=== PATIENT | male | born 1955 | race Caucasian/White ===

== ENCOUNTER 2022-10-13 18:29 | Inpatient (IN) | payer OTHER ==
[2022-10-13] MEDS ORDERED: Acetaminophen 325 MG TAB PO PRN (22:56)
[2022-10-13 23:09] VITALS: BMI 43.6
[2022-10-13] MEDS ORDERED: Glucagon 1 MG/ML KIT IM PRN (23:26)
[2022-10-13] MEDS ORDERED: Dextrose 5% in Water 1,000 ML IV PRN (23:26)
[2022-10-13] MEDS ORDERED: Dextrose 50% Abboject 50 ML SYRINGE SLOW IVP PRN (23:26)
[2022-10-13 23:45] LABS: Troponin I Less than 0.010 ng/mL (< 0.028)
[2022-10-14] MEDS: Levothyroxine Sodium 50 MCG TAB PO SCH (05:21)
[2022-10-14 06:20] LABS: #Eosinphils 0.2 thou/uL (0.0-0.7); #Monocytes 0.5 thou/uL (0.11-0.59); #Neutrophils 5.1 thou/uL (1.40-6.50); %Basophils 0.3 % (0.0-1.0); %Eosinophils 2.2 % (0.0-10.0); %Lymphocytes 34.3 % (21.0-51.0); %Neutrophils 57.1 % (42.0-75.0); Hematocrit 48.3 % (42.0-52.0); Hemoglobin 15.5 g/dL (14.0-18.0); Mean Corpuscular HGB CONC 32.1 g/dL (32.0-36.0); Mean Corpuscular Hemoglobin 27.3 pg (27.0-31.0); Mean Platelet Volume 10.2 fL (7.4-10.4); Platelet Count 208 10x3/uL (130-400); RBC Distribution Width 15.7 % (11.5-14.5); Red Blood Cell (RBC) Count 5.68 mill/uL (4.70-6.10)
[2022-10-14 06:45] LABS: Anion Gap 11 mmol/L (10-20); BUN (Urea Nitrogen) 27 mg/dL (8.4-25.7); Calc. Creatinine Clearance 94 mL/min (70-130); Calcium 9.5 mg/dL (7.8-10.44); Carbon Dioxide 31 mmol/L (23-31); Chloride 99 mmol/L (98-107); Estimated GFR 55; Glucose 160 mg/dL (80-115); Potassium 4.1 mmol/L (3.5-5.1); Sodium 137 mmol/L (136-145)
[2022-10-14 06:55] LABS: Troponin I Less than 0.010 ng/mL (< 0.028)
[2022-10-14] MEDS: Budesonide 0.25 MG/2 ML NEB INH SCH ×2 (07:40→19:24)
[2022-10-14] MEDS ORDERED: Tamsulosin HCl 0.4 MG CAP PO SCH ×2 (07:45→09:00)
[2022-10-14] MEDS: Furosemide 40 MG TAB PO SCH (08:25)
[2022-10-14] MEDS: DULoxetine 30 MG CAP PO SCH (08:25)
[2022-10-14] MEDS: Fenofibrate 48 MG TAB PO SCH (08:26)
[2022-10-14] MEDS: Lisinopril 20 MG TAB PO SCH (11:28)
[2022-10-14] MEDS: HumaLOG 300 UNITS/3 ML VIAL SC PRN ×2 (11:28→18:02)
[2022-10-14] MEDS ORDERED: Regadenoson 0.4 MG/5 ML SYRINGE ONE (12:52)
[2022-10-14] MEDS: metFORMIN 500 MG TAB PO SCH (20:28)
[2022-10-14] MEDS: Pramipexole Di-HCl 0.25 MG TAB PO SCH (20:29)
[2022-10-14] MEDS ORDERED: Rosuvastatin 20 MG TAB PO SCH (21:00)
[2022-10-14] MEDS: HYDROcodone/Acetaminophen 10/325 mg Tablet PO PRN (21:20)
[2022-10-15] MEDS: Levothyroxine Sodium 50 MCG TAB PO SCH ×3 (03:35→11:22)
[2022-10-15] MEDS: HYDROcodone/Acetaminophen 10/325 mg Tablet PO PRN ×2 (03:35→14:46)
[2022-10-15] MEDS: Budesonide 0.25 MG/2 ML NEB INH SCH ×2 (07:16→19:16)
[2022-10-15] MEDS: Lisinopril 20 MG TAB PO SCH ×2 (11:10→11:22)
[2022-10-15] MEDS: Rosuvastatin 20 MG TAB PO SCH (11:11)
[2022-10-15] MEDS: metFORMIN 500 MG TAB PO SCH ×2 (11:12→20:20)
[2022-10-15] MEDS: Allopurinol 300 MG TAB PO SCH (11:13)
[2022-10-15] MEDS: Tamsulosin HCl 0.4 MG CAP PO SCH (11:13)
[2022-10-15] MEDS: Fenofibrate Nanocrystallized 145 MG TAB PO SCH (11:13)
[2022-10-15] MEDS: Furosemide 40 MG TAB PO SCH (11:13)
[2022-10-15] MEDS: DULoxetine 30 MG CAP PO SCH ×2 (11:13→11:22)
[2022-10-15] MEDS: Fenofibrate 48 MG TAB PO SCH (11:22)
[2022-10-15] MEDS: Ipratropium/Albuterol 3 ML NEB NEB SCH (19:14)
[2022-10-15] MEDS: Pramipexole Di-HCl 0.25 MG TAB PO SCH (20:20)
[2022-10-15] MEDS: Sodium Chloride 0.9% 1,000 ML IV SCH (20:20)
[2022-10-15] MEDS: HumaLOG 300 UNITS/3 ML VIAL SC PRN (20:34)
[2022-10-16] MEDS: HumaLOG 300 UNITS/3 ML VIAL SC PRN ×3 (05:45→20:53)
[2022-10-16 06:16] LABS: Anion Gap 17 mmol/L (10-20); BUN (Urea Nitrogen) 47 mg/dL (8.4-25.7); Calc. Creatinine Clearance 61 mL/min (70-130); Calcium 9.9 mg/dL (7.8-10.44); Carbon Dioxide 22 mmol/L (23-31); Chloride 98 mmol/L (98-107); Estimated GFR 32; Glucose 273 mg/dL (80-115); Potassium 5.2 mmol/L (3.5-5.1); Sodium 132 mmol/L (136-145)
[2022-10-16] MEDS: Budesonide 0.25 MG/2 ML NEB INH SCH ×2 (07:14→18:38)
[2022-10-16] MEDS: Ipratropium/Albuterol 3 ML NEB NEB SCH ×4 (07:18→18:37)
[2022-10-16] MEDS: Levothyroxine Sodium 50 MCG TAB PO SCH (09:15)
[2022-10-16] MEDS: metFORMIN 500 MG TAB PO SCH (09:16)
[2022-10-16] MEDS: Rosuvastatin 20 MG TAB PO SCH (09:16)
[2022-10-16] MEDS: Furosemide 40 MG TAB PO SCH (09:22)
[2022-10-16] MEDS: Allopurinol 300 MG TAB PO SCH (09:22)
[2022-10-16] MEDS: Fenofibrate Nanocrystallized 145 MG TAB PO SCH (09:22)
[2022-10-16] MEDS: DULoxetine 30 MG CAP PO SCH (09:22)
[2022-10-16] MEDS: Lisinopril 20 MG TAB PO SCH (09:23)
[2022-10-16] MEDS: Tamsulosin HCl 0.4 MG CAP PO SCH (09:24)
[2022-10-16 11:26] LABS: Cardiac Risk 5.7 (Less than 4.5)
[2022-10-16] MEDS ORDERED: Aspirin 81 mg Enteric Coated Tablet PO SCH (11:30)
[2022-10-16] MEDS ORDERED: Clopidogrel Bisulfate 300 MG TAB PO SCH (11:30)
[2022-10-16 11:40] LABS: Hemoglobin A1c 9.8 % (4.0-6.0)
[2022-10-16] MEDS: Sodium Chloride 0.9% 1,000 ML IV SCH (15:37)
[2022-10-16] MEDS: HYDROcodone/Acetaminophen 10/325 mg Tablet PO PRN (18:15)
[2022-10-16] MEDS: Pramipexole Di-HCl 0.25 MG TAB PO SCH (20:54)
[2022-10-16] MEDS ORDERED: Rosuvastatin 20 MG TAB PO SCH (21:00)
[2022-10-17] MEDS: HumaLOG 300 UNITS/3 ML VIAL SC PRN ×3 (05:40→18:41)
[2022-10-17] MEDS ORDERED: Levothyroxine Sodium 50 MCG TAB PO SCH (06:00)
[2022-10-17 06:08] LABS: Anion Gap 12 mmol/L (10-20); BUN (Urea Nitrogen) 47 mg/dL (8.4-25.7); Calc. Creatinine Clearance 67 mL/min (70-130); Calcium 9.8 mg/dL (7.8-10.44); Carbon Dioxide 24 mmol/L (23-31); Chloride 102 mmol/L (98-107); Estimated GFR 36; Glucose 239 mg/dL (80-115); Sodium 133 mmol/L (136-145)
[2022-10-17] MEDS: Budesonide 0.25 MG/2 ML NEB INH SCH ×2 (06:50→18:55)
[2022-10-17] MEDS: Ipratropium/Albuterol 3 ML NEB NEB SCH ×4 (06:54→18:55)
[2022-10-17] MEDS ORDERED: Sodium Chloride 0.9% 1,000 ML IV SCH (07:56)
[2022-10-17] MEDS ORDERED: Aspirin 81 mg Enteric Coated Tablet PO SCH (09:00)
[2022-10-17] MEDS ORDERED: Clopidogrel Bisulfate 75 MG TAB PO SCH (09:00)
[2022-10-17] MEDS: Allopurinol 300 MG TAB PO SCH (09:10)
[2022-10-17] MEDS: DULoxetine 30 MG CAP PO SCH (09:10)
[2022-10-17] MEDS: Tamsulosin HCl 0.4 MG CAP PO SCH (09:10)
[2022-10-17] MEDS: Icosapent Ethyl 1 GM CAPSULE PO SCH ×2 (09:18→18:41)
[2022-10-17 16:22] VITALS: BP 110/55; TEMP 97.7
== END 2022-10-17 19:05 | disposition home or self-care (01) | DRG 303 ==
LOC: 2SW 18:29 → OBSVTOIN 10-14 17:49
PROVIDERS: ADMIT Family Medicine; ATTEND Family Medicine
DX: I25.119 Atherosclerotic heart disease of native coronary artery with unspecified angina pectoris (principal); J96.11 Chronic respiratory failure with hypoxia; I13.0 Hypertensive heart and chronic kidney disease with heart failure and stage 1 through stage 4 chronic kidney disease, or unspecified chronic kidney disease; N17.9 Acute kidney failure, unspecified; Z68.41 Body mass index [BMI] 40.0-44.9, adult; N18.4 Chronic kidney disease, stage 4 (severe); E03.9 Hypothyroidism, unspecified; E78.5 Hyperlipidemia, unspecified; E66.9 Obesity, unspecified; L40.9 Psoriasis, unspecified; J44.9 Chronic obstructive pulmonary disease, unspecified; Z88.0 Allergy status to penicillin; I25.2 Old myocardial infarction; N40.1 Benign prostatic hyperplasia with lower urinary tract symptoms; E11.22 Type 2 diabetes mellitus with diabetic chronic kidney disease; I50.9 Heart failure, unspecified; I89.0 Lymphedema, not elsewhere classified; N28.9 Disorder of kidney and ureter, unspecified; Z82.49 Family history of ischemic heart disease and other diseases of the circulatory system; Z95.5 Presence of coronary angioplasty implant and graft; E11.51 Type 2 diabetes mellitus with diabetic peripheral angiopathy without gangrene; F17.220 Nicotine dependence, chewing tobacco, uncomplicated; R33.8 Other retention of urine; I42.9 Cardiomyopathy, unspecified; E78.1 Pure hyperglyceridemia
CPT/HCPCS: 36415; 36416; 51702; 78452; 80048; 80061; 83036; 84484; 85025; 93017; 94640; 96372; A9500; G0378; G0379; J1650; J1815; J2785; J7050; J7620; J7626

== ENCOUNTER 2023-05-02 02:00 | Inpatient (IN) | payer OTHER ==
[2023-05-02] MEDS ORDERED: Ipratropium Bromide 2.5 ml Neb ONE (03:19)
[2023-05-02] MEDS ORDERED: Albuterol 200 PUFF (6.7GM INHALER) ONE (03:20)
[2023-05-02] MEDS ORDERED: Albuterol 2.5 MG (3 mL) NEB ONE (03:21)
[2023-05-02] MEDS ORDERED: Acetaminophen 325 MG TAB PO PRN (04:34)
[2023-05-02] MEDS ORDERED: Ondansetron ODT 4 MG TAB PO PRN (04:34)
[2023-05-02 05:25] LABS: #Monocytes 0.1 thou/uL (0.11-0.59); #Neutrophils 8.1 thou/uL (1.40-6.50); %Basophils 0.2 % (0.0-1.0); %Eosinophils 0.4 % (0.0-10.0); %Lymphocytes 11.9 % (21.0-51.0); %Monocytes 0.7 % (0.0-10.0); %Neutrophils 86.1 % (42.0-75.0); Hematocrit 48.5 % (42.0-52.0); Hemoglobin 15.8 g/dL (14.0-18.0); Mean Corpuscular HGB CONC 32.6 g/dL (32.0-36.0); Mean Corpuscular Hemoglobin 27.1 pg (27.0-31.0); Mean Corpuscular Volume 83.3 fl (78.0-98.0); Platelet Count 228 10x3/uL (130-400); RBC Distribution Width 14.6 % (11.5-14.5); Red Blood Cell (RBC) Count 5.82 mill/uL (4.70-6.10); White Blood Cell (WBC) Count 9.4 10x3/uL (4.8-10.8)
[2023-05-02 05:37] LABS: Troponin I Less than 0.010 ng/mL (< 0.028)
[2023-05-02 06:10] LABS: Hemoglobin A1c 10.5 % (4.0-6.0)
[2023-05-02 06:14] LABS: ALT (SGPT) 15 U/L (8-55); AST (SGOT) 13 U/L (5-34); Albumin 4.4 g/dL (3.4-4.8); Alkaline Phosphatase 73 U/L (40-110); Anion Gap 16 mmol/L (10-20); BUN (Urea Nitrogen) 26 mg/dL (8.4-25.7); Bilirubin, Total 0.5 mg/dL (0.2-1.2); Calc. Creatinine Clearance 84 mL/min (70-130); Carbon Dioxide 25 mmol/L (23-31); Chloride 100 mmol/L (98-107); Estimated GFR 48; Globulin 3.3 g/dL (2.4-3.5); Protein, Total 7.7 g/dL (5.8-8.1); Sodium 136 mmol/L (136-145)
[2023-05-02 06:17] LABS: Critical Call Chemistry NUR.LH12@0617; Glucose 447 mg/dL (80-115)
[2023-05-02] MEDS ORDERED: Magnesium 2 GM/50 ML BAG (IN WATER) ONE (06:19)
[2023-05-02] MEDS: Magnesium 2 GM/50 ML(in water) 2 GM in Premix 1 BAG IVPB SCH (06:24)
[2023-05-02] MEDS: Levothyroxine Sodium 50 MCG TAB PO SCH (06:24)
[2023-05-02] MEDS ORDERED: Glucagon 1 MG/ML KIT IM PRN (06:34)
[2023-05-02] MEDS ORDERED: Dextrose 50% Abboject 50 ML SYRINGE SLOW IVP PRN ×2 (06:34→14:34)
[2023-05-02] MEDS ORDERED: HumaLOG 300 UNITS/3 ML VIAL SC PRN (06:34)
[2023-05-02] MEDS ORDERED: Dextrose 5% in Water 1,000 ML IV PRN (06:34)
[2023-05-02] MEDS ORDERED: Insulin Regular 300 UNITS/3 ML VIAL ONE ×2 (06:57→15:35)
[2023-05-02] MEDS: Insulin Regular 300 UNITS/3 ML VIAL IVP SCH ×2 (07:03→15:39)
[2023-05-02 07:18] LABS: Troponin I Less than 0.010 ng/mL (< 0.028)
[2023-05-02] MEDS ORDERED: Ipratropium/Albuterol 3 ML NEB ONE ×2 (07:34→12:46)
[2023-05-02] MEDS: Ipratropium/Albuterol 3 ML NEB NEB SCH (07:38)
[2023-05-02] MEDS ORDERED: ALPRAZolam 0.5 MG TAB PO PRN (08:27)
[2023-05-02] MEDS ORDERED: Doxycycline 100 MG CAP ONE (10:25)
[2023-05-02] MEDS ORDERED: Aspirin 81 mg Enteric Coated Tablet ONE (10:25)
[2023-05-02] MEDS ORDERED: Clopidogrel Bisulfate 75 MG TAB ONE (10:25)
[2023-05-02] MEDS ORDERED: Famotidine 20 MG TAB ONE (10:26)
[2023-05-02] MEDS ORDERED: Nicotine 14 MG PATCH ONE (10:26)
[2023-05-02] MEDS ORDERED: HYDROcodone/Acetaminophen 10/325 mg Tablet ONE (10:26)
[2023-05-02] MEDS ORDERED: Lisinopril 10 MG TAB ONE (10:26)
[2023-05-02] MEDS ORDERED: HumaLOG 300 UNITS/3 ML VIAL ONE (10:27)
[2023-05-02] MEDS ORDERED: methylPREDNISolone Sod Succ 40 MG VIAL ONE (10:27)
[2023-05-02] MEDS: HumaLOG 300 UNITS/3 ML VIAL SC PRN ×3 (10:36→21:30)
[2023-05-02] MEDS: HYDROcodone/Acetaminophen 10/325 mg Tablet PO PRN (10:37)
[2023-05-02] MEDS: Lisinopril 10 MG TAB PO SCH (10:37)
[2023-05-02] MEDS: methylPREDNISolone Sod Succ 40 MG VIAL IVP SCH (10:37)
[2023-05-02] MEDS: Aspirin 81 mg Enteric Coated Tablet PO SCH (10:37)
[2023-05-02] MEDS: Nicotine 14 MG PATCH TD SCH (10:37)
[2023-05-02] MEDS: Famotidine 20 MG TAB PO SCH (10:37)
[2023-05-02] MEDS: Clopidogrel Bisulfate 75 MG TAB PO SCH (10:37)
[2023-05-02] MEDS: Doxycycline 100 MG CAP PO SCH (10:37)
[2023-05-02] MEDS: Insulin Glargine 30 UNITS/0.3 ML VIAL SC SCH (10:40)
[2023-05-02] MEDS: Rosuvastatin 20 MG TAB PO SCH (13:25)
[2023-05-02 18:24] VITALS: BMI 40.6
[2023-05-02] MEDS: Icosapent Ethyl 1 GM CAPSULE PO SCH (21:18)
[2023-05-02] MEDS: Pramipexole Di-HCl 0.25 MG TAB PO SCH (21:18)
[2023-05-02] MEDS: Insulin Regular 300 UNITS/3 ML VIAL SC SCH (21:19)
[2023-05-03 06:23] LABS: #Monocytes 0.7 thou/uL (0.11-0.59); #Neutrophils 13.4 thou/uL (1.40-6.50); %Basophils 0.1 % (0.0-1.0); %Lymphocytes 12.3 % (21.0-51.0); %Monocytes 4.1 % (0.0-10.0); %Neutrophils 83.1 % (42.0-75.0); Hemoglobin 15.5 g/dL (14.0-18.0); Mean Corpuscular Hemoglobin 27.6 pg (27.0-31.0); Mean Corpuscular Volume 83.6 fl (78.0-98.0); Platelet Count 250 10x3/uL (130-400); RBC Distribution Width 14.6 % (11.5-14.5); Red Blood Cell (RBC) Count 5.62 mill/uL (4.70-6.10); White Blood Cell (WBC) Count 16.1 10x3/uL (4.8-10.8)
[2023-05-03 06:56] LABS: Anion Gap 16 mmol/L (10-20); BUN (Urea Nitrogen) 36 mg/dL (8.4-25.7); Calc. Creatinine Clearance 93 mL/min (70-130); Calcium 9.7 mg/dL (7.8-10.44); Carbon Dioxide 25 mmol/L (23-31); Chloride 102 mmol/L (98-107); Estimated GFR 59; Glucose 159 mg/dL (80-115); Potassium 4.2 mmol/L (3.5-5.1); Sodium 139 mmol/L (136-145)
[2023-05-03] MEDS: Allopurinol 300 MG TAB PO SCH (08:25)
[2023-05-03] MEDS: DULoxetine 30 MG CAP PO SCH (08:25)
[2023-05-03] MEDS: Isosorbide Mononitrate 30 MG ER.TAB PO SCH (08:26)
[2023-05-03] MEDS: Fenofibrate Nanocrystallized 145 MG TAB PO SCH (08:26)
[2023-05-03] MEDS: Famotidine 20 MG TAB PO SCH (08:27)
[2023-05-03] MEDS: Tamsulosin HCl 0.4 MG CAP PO SCH (08:27)
[2023-05-03] MEDS: methylPREDNISolone Sod Succ 40 MG VIAL IVP SCH (09:26)
[2023-05-03] MEDS: Insulin Glargine 30 UNITS/0.3 ML VIAL SC SCH (09:40)
[2023-05-03] MEDS: Albuterol 200 PUFF (6.7GM INHALER) INH PRN (13:19)
[2023-05-04] MEDS: Insulin Glargine 30 UNITS/0.3 ML VIAL SC SCH (10:14)
[2023-05-04 11:32] VITALS: BP 143/80; TEMP 97.7
== END 2023-05-04 11:34 | disposition home or self-care (01) | DRG 189 ==
LOC: ERS 02:00 → ERHOLD 03:33 → 2SE 18:14 → OBSVTOIN 05-03 14:25
PROVIDERS: ADMIT Student in an Organized Health Care Education/Training Program; ATTEND Internal Medicine
DX: J96.00 Acute respiratory failure, unspecified whether with hypoxia or hypercapnia (principal); J44.1 Chronic obstructive pulmonary disease with (acute) exacerbation; I13.0 Hypertensive heart and chronic kidney disease with heart failure and stage 1 through stage 4 chronic kidney disease, or unspecified chronic kidney disease; I50.22 Chronic systolic (congestive) heart failure; Z68.41 Body mass index [BMI] 40.0-44.9, adult; N18.30 Chronic kidney disease, stage 3 unspecified; E11.9 Type 2 diabetes mellitus without complications; I25.10 Atherosclerotic heart disease of native coronary artery without angina pectoris; N40.0 Benign prostatic hyperplasia without lower urinary tract symptoms; E66.01 Morbid (severe) obesity due to excess calories; E78.5 Hyperlipidemia, unspecified; F41.9 Anxiety disorder, unspecified; F32.9 Major depressive disorder, single episode, unspecified; L40.9 Psoriasis, unspecified; F17.290 Nicotine dependence, other tobacco product, uncomplicated; Z88.0 Allergy status to penicillin; Z79.890 Hormone replacement therapy; Z79.899 Other long term (current) drug therapy; Z79.82 Long term (current) use of aspirin; Z95.818 Presence of other cardiac implants and grafts; Z98.890 Other specified postprocedural states
CPT/HCPCS: 36415; 36416; 80048; 80053; 83036; 83880; 84484; 85025; 94640; 94644; J1815; J2920; J3475; J7611; J7620

== ENCOUNTER 2023-09-14 22:11 | Emergency (ER) | payer OTHER, MEDICARE ==
[2023-09-14] MEDS ORDERED: Ipratropium/Albuterol 3 ML NEB ONE (22:41)
== END 2023-09-15 00:05 | disposition home or self-care (01) ==
LOC: ERS 22:11
DX: M25.512 Pain in left shoulder (principal); I11.0 Hypertensive heart disease with heart failure; I50.9 Heart failure, unspecified; F17.220 Nicotine dependence, chewing tobacco, uncomplicated
CPT/HCPCS: 71045; 94640; J7620